=== PATIENT | male | born 1995 ===

== ENCOUNTER 2016-11-03 19:41 | Emergency (ER) | payer OTHER ==
--- NOTE | 2016-11-03 20:46 | UC ---
FLU HPI - HPI Summary HPI Summary: 2 day of body aches, st cough, fever - History of Current Complaint Chief Complaint: UCRespiratory Stated Complaint: FEVER Time Seen by Provider: 11/03/16 20:40 Hx Obtained From: Patient Onset/Duration: Sudden Onset, Lasting Days - 2 Severity Currently: Moderate Severity Initially: Moderate Pain Intensity: 6 Pain Scale Used: 0-10 Numeric Associated Signs & Symptoms: Positive: Fever, Myalgia, Cough, Sore Throat, Nasal Congestion - Allergy/Home Medications Allergies/Adverse Reactions: Allergies Allergy/AdvReac Type Severity Reaction Status Date / Time No Known Allergies Allergy Verified 11/03/16 20:21 Home Medications: Home Medications Lisdexamfetamine Dimesylate [Vyvanse] 11/03/16 [History] PMH/Surg Hx/FS Hx/Imm Hx Previously Healthy: Yes - Surgical History Surgical History: None - Family History Known Family History: Positive: None Family History: no cardiovascular issues in family lineage - Social History Occupation: Student Lives: With Family Alcohol Use: None Substance Use Type: None Smoking Status (MU): Never Smoked Tobacco Review of Systems Constitutional: Fever, Chills, Fatigue Skin: Negative Eyes: Negative ENT: Sore Throat, Ear Ache, Nasal Discharge Respiratory: Cough Cardiovascular: Negative Gastrointestinal: Negative Genitourinary: Negative Motor: Negative Neurovascular: Negative Musculoskeletal: Arthralgia, Myalgia Neurological: Negative Psychological: Negative All Other Systems Reviewed And Are Negative: Yes Physical Exam Triage Information Reviewed: Yes Appearance: Well-Nourished, Ill-Appearing, Pain Distress Vital Signs: Initial Vital Signs Temp 100.2 F 11/03/16 20:18 Pulse 120 11/03/16 20:18 Resp 16 11/03/16 20:18 BP 101/46 11/03/16 20:18 Pulse Ox 100 11/03/16 20:18 Vital Signs Reviewed: Yes Eye Exam: Normal Eyes: Positive: Conjunctiva Clear ENT Exam: Normal ENT: Positive: Normal ENT inspection, Hearing grossly normal, Pharynx normal, Nasal congestion, Nasal drainage, TMs normal. Negative: Tonsillar swelling, Tonsillar exudate, Trismus, Muffled/hoarse voice Dental Exam: Normal Neck exam: Normal Neck: Positive: Supple, Nontender, No Lymphadenopathy Respiratory Exam: Normal Respiratory: Positive: Chest non-tender, Lungs clear, Normal breath sounds, No respiratory distress, No accessory muscle use Cardiovascular Exam: Other Cardiovascular: Positive: No Murmur, Pulses Normal, Brisk Capillary Refill, Tachycardia Musculoskeletal Exam: Normal Musculoskeletal: Positive: Strength Intact, ROM Intact, No Edema Neurological Exam: Normal Neurological: Positive: Alert, Muscle Tone Normal Psychological Exam: Normal Skin Exam: Normal Diagnostics - Laboratory Diagnostic Studies Completed/Ordered: influenza A (+) Flu Course/Dx - Course Course Of Treatment: Tamiflu, increase fluids, ibuprofen rest, follow with health center re-check prn - Differential Dx/Diagnosis Differential Diagnosis/HQI/PQRI: Broncholiolitis, Influenza, Pneumonia, RSV, Upper Respiratory Infection Provider Diagnoses: Influenza A Discharge - Discharge Plan Condition: Stable Disposition: HOME Prescriptions: Oseltamivir CAP* [Tamiflu CAP*] 75 mg PO BID #9 cap Patient Education Materials: Ibuprofen (By mouth), Influenza (ED) Forms: *School Release Referrals: [facility] [Outside] - 4 Days
[2016-11-03] MEDS ORDERED: Ibuprofen TAB* 600 MG PO ONE (20:47)
[2016-11-03] MEDS ORDERED: Oseltamivir CAP* 75 MG PO ONE (21:40)
== END 2016-11-03 22:03 | disposition home or self-care (01) ==
LOC: UCEAST 19:41
DX: J10.1 Influenza due to other identified influenza virus with other respiratory manifestations (principal)
CPT/HCPCS: 87502; 87651; 99202; A9270-GY; G0463